=== PATIENT | male | born 1935 | race Caucasian/White ===

== ENCOUNTER 2023-05-10 09:55 | Outpatient (CLI) | payer MEDICARE | END 2023-05-10 09:56 | disposition home or self-care (01) | LOC: SCSMRI 09:55 | PROVIDERS: ATTEND Orthopaedic Surgery | DX: M48.061 Spinal stenosis, lumbar region without neurogenic claudication (principal); M47.816 Spondylosis without myelopathy or radiculopathy, lumbar region; M51.36 Other intervertebral disc degeneration, lumbar region; M48.07 Spinal stenosis, lumbosacral region | CPT/HCPCS: 72148 ==